=== PATIENT | female | born 1940 | race Hispanic/Latino ===

== ENCOUNTER 2021-10-22 20:56 | Emergency (ER) | payer MEDICAID, OTHER ==
[~2021-10-22] VITALS: Ht 165.1 cm; Wt 87.5 kg
[~2021-10-22 20:56] MED LIST: AEC81 PO; AMLO-257 PO; ATOR40TA71 PO; FLUT1DIS IH; HYDR25LI MC; LOSA100T58 PO; METF-445 PO; PREG25 PO; TIOT18CA3 IH
[2021-10-22 21:22] LABS: BASOPHILS % (AUTO) 0.1 % (0.0-5.0); EOSINOPHILS % (AUTO) 0.7 % (0.0-8.0); HEMATOCRIT 42.6 % (36-48); LYMPHOCYTES % (AUTO) 5.3 % (21.0-51.0); MEAN CORPUSCULAR HEMOGLOBIN 25.9 pg (27.0-33.0); MEAN CORPUSCULAR HGB CONC 30.5 g/dL (32.0-36.0); MEAN CORPUSCULAR VOLUME 84.9 fL (79-99); MONOCYTES % (AUTO) 3.4 % (3.0-13.0); PLATELET COUNT (AUTO) 230 K/uL (130-400); RED BLOOD CELL COUNT(AUTO) 5.02 MIL/uL (4.00-5.50); RED CELL DISTRIBUTION WIDTH 13.7 % (11.0-15.5); WHITE BLOOD COUNT (AUTO) 15.2 K/uL (4.8-10.8)
[2021-10-22 21:35] LABS: CREATININE 1.1 mg/dL (0.5-1.5); POTASSIUM 3.9 mmol/L (3.5-5.1)
[2021-10-22 21:37] LABS: APPEARANCE,URINE Clear (CLEAR); BILIRUBIN,URINE Negative (NEGATIVE); COLOR,URINE Yellow (YELLOW); GLUCOSE, URINE (UA) TRACE mg/dL (NEGATIVE); KETONES,URINE Negative (NEGATIVE); LEUKOCYTE ESTERASE ,URINE Trace (NEGATIVE); NITRATE,URINE Negative (NEGATIVE); OCCULT BLOOD,URINE Moderate (NEGATIVE); PH,URINE 7.5 (5.0-8.0); PROTEIN,URINE >=1000 mg/dL (NEGATIVE); UROBILINOGEN,URINE 0.2 mg/dL (0.2-1.0)
[2021-10-22 21:42] LABS: ALBUMIN 2.6 g/dL (3.5-5.0)
[2021-10-22 21:50] LABS: BACTERIA,URINE Few /HPF (None Seen); RBC,URINE None Seen /HPF (0-1); WBC,URINE 0-1 /HPF (0-1)
[2021-10-22] MEDS ORDERED: PROCHLORPERAZINE 10MG/2ML INJ IV ONE (22:30)
[2021-10-22] MEDS ORDERED: KETOROLAC 15MG/ML VIAL (15MG/ML) IV ONE (22:30)
[2021-10-22] MEDS ORDERED: DiphenhydrAMINE HCL 50 MG/ML VIAL IV ONE (22:30)
[2021-10-22] MEDS ORDERED: 0.9% NACL 500ML IV.SOLN 500 ML IV ONE (22:30)
[2021-10-22] MEDS ORDERED: IOHEXOL 350 MG/ML 100ML INFUS..BTL IV ONE (23:13)
[2021-10-23] MEDS ORDERED: CEFTRIAXONE 1G VIAL IVP ONE (01:00)
[2021-10-23] MEDS ORDERED: SOLU-MEDROL 125MG VIAL IVP ONE (01:00)
[2021-10-23] MEDS ORDERED: FLUT16H NASAL (01:19)
[2021-10-23] MEDS ORDERED: IBUP-2070 PO (01:19)
[2021-10-23] MEDS ORDERED: AMOX1TAB16 PO (01:19)
[2021-10-23 02:20] VITALS: BP 110/58
== END 2021-10-23 02:22 | disposition home or self-care (01) ==
LOC: EDH 20:56
DX: J32.9 Chronic sinusitis, unspecified (principal); R11.2 Nausea with vomiting, unspecified; E11.9 Type 2 diabetes mellitus without complications; E78.00 Pure hypercholesterolemia, unspecified; I10 Essential (primary) hypertension; Z79.1 Long term (current) use of non-steroidal anti-inflammatories (NSAID); Z79.51 Long term (current) use of inhaled steroids; Z79.52 Long term (current) use of systemic steroids; Z79.899 Other long term (current) drug therapy
CPT/HCPCS: 99285; 70496; 96374; 71045; 96375 ×2; 96361; 84484; 80053; 85025; 81001; 36415; 93005; 70450; J1200; J0780; J1885; Q9967; J2930; J0696